=== PATIENT | male | born 1955 | race Caucasian/White ===

== ENCOUNTER 2018-05-18 07:36 | Outpatient (REF) | payer BC, SELFPAY ==
[2018-05-18 13:11] LABS: Hemoglobin A1C 5.1 % (4.5-6.2)
[2018-05-18 13:21] LABS: Anion Gap 7.9 mmol/L (3-11); BUN 18 mg/dL (7-18); CO2 31.1 mmol/L (21.0-32.0); CREATININE 0.91 mg/dL (0.70-1.30); Calcium 9.1 mg/dL (8.5-10.1); Chloride 98 mmol/L (98-107); Cholesterol 173 mg/dL (50-200); Glucose 110 mg/dL (70-100); HDL Cholesterol 76 mg/dL (40-60); LDL CHOLESTEROL 83 mg/dL (<100); Potassium 4.3 mmol/L (3.5-5.1); Sodium 137 mmol/L (136-145); Triglyceride 75 mg/dL (30-150)
[2018-05-19 10:52] LABS: Hepatitis C Ab w Rflx HCV PCR Negative (NEGAT)
[2018-05-19 11:14] LABS: PSA, Screening 0.3 ng/ml (0-4.5)
== END 2018-05-18 07:56 ==
LOC: NCHCN 07:36
PROVIDERS: PCP Family Medicine; Visit Provider Family Medicine
DX: Z00.00 Encounter for general adult medical examination without abnormal findings (principal); R73.01 Impaired fasting glucose; I10 Essential (primary) hypertension; Z12.5 Encounter for screening for malignant neoplasm of prostate; Z11.59 Encounter for screening for other viral diseases
CPT/HCPCS: 80048; 80061; 83721; 84153; 86803; 83036

== ENCOUNTER 2018-08-24 08:43 | Outpatient (REF) | payer BC, SELFPAY ==
[2018-08-24 11:36] LABS: HCT 46.9 % (40.0-50.0); HGB 16.7 g/dL (13.5-17.5); Mean Corp. HGB Concentration 35.6 g/dL (32.0-36.0); Mean Corpuscular Hemoglobin 33.1 pg (27.0-33.0); Mean Corpuscular Volume 93.1 fL (80-95); Mean Platelet Volume 9.9 fL (8.0-11.0); Platelet Count 281 x1000/uL (130-400); RBC 5.04 m/cumm (4.50-6.00); RBC Distribution Width 11.5 % (11.8-14.1); White Blood Cell Count 5.77 k/cumm (4.4-10.8)
[2018-08-24 11:58] LABS: ALT 30 U/L (12-78); AST 24 U/L (15-37); Albumin 4.5 g/dL (3.4-5.0); Alkaline Phosphatase 74 U/L (46-116); Anion Gap 8.4 mmol/L (3-11); BUN 13 mg/dL (7-18); Bilirubin, Total 0.5 mg/dL (0.2-1.0); CO2 29.6 mmol/L (21.0-32.0); CREATININE 0.99 mg/dL (0.70-1.30); Calcium 9.9 mg/dL (8.5-10.1); Chloride 99 mmol/L (98-107); Glucose 115 mg/dL (70-100); Potassium 4.2 mmol/L (3.5-5.1); Sodium 137 mmol/L (136-145); TSH (W/Ref FT4) 3.09 uIU/mL (0.358-3.74); Total Protein 7.3 g/dL (6.4-8.2)
== END 2018-08-24 09:03 ==
LOC: NCHCN 08:43
PROVIDERS: PCP Family Medicine; Visit Provider Nurse Practitioner
DX: I10 Essential (primary) hypertension (principal)
CPT/HCPCS: 80053; 85027; 84443